=== PATIENT | female | born 1995 | race African-American/Black ===

== ENCOUNTER 2022-04-13 20:22 | Emergency (ER) | payer BC, OTHER ==
[~2022-04-13] VITALS: Ht 170.2 cm; Wt 69.9 kg
[2022-04-13 20:41] VITALS: BP 128/82
--- NOTE | 2022-04-13 21:02 | NUR ---
PATIENT LEFT WITHOUT BEING SEEN BY DR. RINCON. NO FURTHER CARE PROVIDED FOR PATIENT.
--- NOTE | 2022-04-13 21:02 | NUR ---
LEFT ER AT [id number]
== END 2022-04-13 21:02 | disposition left against medical advice (07) ==
LOC: MED 20:22
DX: R05.9 Cough, unspecified (principal); Z53.21 Procedure and treatment not carried out due to patient leaving prior to being seen by health care provider

== ENCOUNTER 2024-07-17 14:52 | Emergency (ER) | payer BC, OTHER ==
[~2024-07-17] VITALS: Ht 170.2 cm; Wt 71.4 kg
[2024-07-17 15:03] VITALS: BP 108/74; PULSE 90; RESP 16; TEMP 97.6; O2SAT 100
[2024-07-17] MEDS: ONDANSETRON 4 MG/2 ML VIAL IVP ONE (15:49)
[2024-07-17 15:52] LABS: BILIRUBIN,URINE NEGATIVE (NEGATIVE); BLOOD, URINE NEGATIVE (NEGATIVE); COLOR,URINE YELLOW (YELLOW); LEUKOCYTE ESTERASE ,URINE TRACE (NEGATIVE); NITRITE, URINE NEGATIVE (NEGATIVE); PH,URINE 6.5 (5.0-9.0); PROTEIN,URINE NEGATIVE (NEGATIVE); UGLUCOSE NEGATIVE (NEGATIVE); UROBILINOGEN,URINE 0.2 EU/dL (0.2 - 1)
[2024-07-17 15:53] LABS: APPEARANCE,URINE SLIGHTLY HAZY (CLEAR)
[2024-07-17 15:57] LABS: BACTERIA,URINE 1+ /HPF (None Seen); MUCUS,URINE None Seen /LPF (None Seen); RBC,URINE 0 /HPF (0-5); SQUAMOUS EPITHELIAL CELL,UR 4-10 (MOD) /LPF (0-3 (FEW)); WBC,URINE 0-5 /HPF (0-5)
[2024-07-17 15:57] LABS: BASOPHILS % (AUTO) 0.5 % (0.0-2.0); EOSINOPHILS # (AUTO) 0.1 K/uL (0-0.4); EOSINOPHILS % (AUTO) 1.1 % (0.0-4.0); HEMATOCRIT 36.7 % (36-48); HEMOGLOBIN 11.9 g/dL (12.0-16.0); LYMPHOCYTES # (AUTO) 2.2 K/uL (2.5-16.5); MEAN CORPUSCULAR HEMOGLOBIN 26 pg (27-31); MEAN CORPUSCULAR HGB CONC 32 g/dL (33-37); MONOCYTES # (AUTO) 0.7 K/uL (0.8-1.0); MONOCYTES % (AUTO) 7.2 % (1.7-9.3); NEUTROPHILS # (AUTO) 6.5 K/uL (1.8-7.7); NEUTROPHILS % (AUTO) 68.2 % (42.2-75.2); PLATELET COUNT (AUTO) 307 K/uL (140-450); RED BLOOD CELL COUNT(AUTO) 4.59 MIL/uL (4.20-5.40); RED CELL DISTRIBUTION WIDTH 13.8 % (11.6-13.7); WHITE BLOOD COUNT (AUTO) 9.6 K/uL (4.8-10.8)
[2024-07-17] MEDS: NACL 0.9% 1,000 ML IV ONE (15:58)
[2024-07-17 16:05] LABS: ANION GAP 13.9 (8-16); CALCIUM 8.8 mg/dL (8.5-10.1); CARBON DIOXIDE 23.8 mmol/L (21-32); CREATININE 0.6 mg/dL (0.6-1.3); POTASSIUM 3.7 mmol/L (3.5-5.1)
[2024-07-17 16:11] LABS: BILIRUBIN,DIRECT 0.1 mg/dL (0.0-0.3); TOTAL BILIRUBIN 0.2 mg/dL (0.0-1.0); TOTAL PROTEIN, SERUM 7.6 g/dL (6.4-8.2)
[2024-07-17] MEDS ORDERED: DOXY1TCP PO (16:45)
== END 2024-07-17 17:00 | disposition home or self-care (01) ==
LOC: MED 14:52
DX: O21.0 Mild hyperemesis gravidarum (principal); O26.891 Other specified pregnancy related conditions, first trimester; R10.12 Left upper quadrant pain; R10.32 Left lower quadrant pain; Z3A.01 Less than 8 weeks gestation of pregnancy; Z79.899 Other long term (current) drug therapy
CPT/HCPCS: 36415; 80048; 80076; 81001; 81025; 83690; 85025; 96361; 96374; 99283; J2405; J7030